=== PATIENT | male | born 1985 | race Two or more races ===

== ENCOUNTER 2019-12-02 17:09 | Emergency (ER) | payer OTHER ==
[~2019-12-02] VITALS: Ht 188 cm; Wt 75.9 kg
[2019-12-02 18:28] VITALS: BP 125/75
== END 2019-12-02 18:42 | disposition home or self-care (01) ==
LOC: EMS 17:09
DX: J06.9 Acute upper respiratory infection, unspecified (principal); R03.0 Elevated blood-pressure reading, without diagnosis of hypertension

== ENCOUNTER 2021-11-30 07:26 | Emergency (ER) | payer OTHER ==
[~2021-11-30] VITALS: Ht 188 cm; Wt 78.2 kg
[2021-11-30 08:37] VITALS: BP 124/78
[2021-11-30 08:37] LABS: BILIRUBIN,URINE NEGATIVE (NEGATIVE); GLUCOSE, URINE (UA) NEGATIVE (NEGATIVE); KETONES,URINE NEGATIVE (NEGATIVE); LEUKOCYTE ESTERASE ,URINE LARGE (NEGATIVE); NITRATE,URINE NEGATIVE (NEGATIVE); PH,URINE 5.5 (5.0-8.0); PROTEIN,URINE TRACE mg/dL (NEGATIVE); SPECIFIC GRAVITIY, URINE 1.023 (1.003-1.030)
[2021-11-30 08:50] LABS: APPEARANCE,URINE SLIGHTLY CLOUDY (CLEAR); OCCULT BLOOD,URINE TRACE (NEGATIVE)
[2021-11-30 08:51] LABS: BACTERIA,URINE Moderate /HPF (None Seen); RBC,URINE 0-2 /HPF (0-2); WBC,URINE 26-50 /HPF (0-5)
[2021-11-30] MEDS ORDERED: AZITHROMYCIN 500 MG TABLET PO ONE (09:00)
[2021-11-30] MEDS ORDERED: LIDOCAINE/PF 1% 2 ML VIAL IM ONE (09:00)
[2021-11-30] MEDS ORDERED: CefTRIAXone SODIUM 1 GM/VIAL IM ONE (09:00)
== END 2021-11-30 11:33 | disposition home or self-care (01) ==
LOC: EMS 07:30
DX: N34.2 Other urethritis (principal)
CPT/HCPCS: 81001; 87086; 96372; 99283; J0696; J3490; Q9967

== ENCOUNTER 2022-02-23 06:37 | Emergency (ER) | payer OTHER ==
[~2022-02-23] VITALS: Ht 185.4 cm; Wt 79.5 kg
[2022-02-23 06:40] VITALS: BP 128/71
[2022-02-23] MEDS ORDERED: AZITHROMYCIN 500 MG TABLET PO ONE (07:15)
[2022-02-23] MEDS ORDERED: CefTRIAXone SODIUM 1 GM/VIAL IM ONE (07:15)
[2022-02-23] MEDS ORDERED: LIDOCAINE/PF 1% 2 ML VIAL IM ONE (07:15)
[2022-02-23 08:05] LABS: APPEARANCE,URINE CLEAR (CLEAR); BILIRUBIN,URINE NEGATIVE (NEGATIVE); GLUCOSE, URINE (UA) NEGATIVE (NEGATIVE); KETONES,URINE NEGATIVE (NEGATIVE); OCCULT BLOOD,URINE NEGATIVE (NEGATIVE); PROTEIN,URINE NEGATIVE (NEGATIVE); SPECIFIC GRAVITIY, URINE 1.017 (1.003-1.030)
[2022-02-23 08:06] LABS: LEUKOCYTE ESTERASE ,URINE NEGATIVE (NEGATIVE); NITRATE,URINE NEGATIVE (NEGATIVE); UROBILINOGEN,URINE <=1.0 mg/dL (<=1.0)
== END 2022-02-23 07:33 | disposition home or self-care (01) ==
LOC: EMS 06:38
DX: N34.2 Other urethritis (principal)
CPT/HCPCS: 81003; 87491; 87591; 96372; 99283; J0696; J3490; Q9967

== ENCOUNTER 2023-10-28 11:00 | Emergency (ER) | payer OTHER ==
[~2023-10-28] VITALS: Ht 185.4 cm; Wt 84.1 kg
[2023-10-28 11:18] VITALS: TEMP 99.2
[2023-10-28] MEDS ORDERED: AZITHROMYCIN 500 MG TABLET PO ONE (12:15)
[2023-10-28] MEDS ORDERED: LIDOCAINE/PF 1% 2 ML VIAL IM ONE (12:15)
[2023-10-28] MEDS ORDERED: CefTRIAXone SODIUM 1 GM/VIAL IM ONE (12:15)
[2023-10-28 12:39] VITALS: BP 122/72; PULSE 85; RESP 16
== END 2023-10-28 12:50 | disposition home or self-care (01) ==
LOC: EMS 11:00
DX: N34.2 Other urethritis (principal)
CPT/HCPCS: 99283; 87491; 87591; 96372; J0696; J3490; Q9967

== ENCOUNTER 2025-08-18 06:22 | Emergency (ER) | payer OTHER ==
[~2025-08-18] VITALS: Ht 188 cm; Wt 78.2 kg
[2025-08-18 06:36] VITALS: BP 124/84; PULSE 85; RESP 16; TEMP 98.4; O2SAT 100
[2025-08-18] MEDS ORDERED: DOXY-354 PO (06:51)
[2025-08-18] MEDS: CefTRIAXone SODIUM 1 GM/VIAL IM ONE (07:03)
[2025-08-18] MEDS: LIDOCAINE/PF 1% 2 ML VIAL IM ONE (07:03)
[2025-08-18] MEDS: AZITHROMYCIN 500 MG TABLET PO ONE (07:03)
== END 2025-08-18 07:05 | disposition home or self-care (01) ==
LOC: EMS 06:26
DX: N34.2 Other urethritis (principal)
CPT/HCPCS: 99283; 96372; J0456; J0696; J3490